=== PATIENT | male | born 1965 | race American Indian/Alaskan Native ===

== ENCOUNTER 2017-12-17 09:15 | Emergency (ER) | payer MEDICAID ==
[2017-12-17] MEDS ORDERED: KEPPRA 1,000 MG/NS 0.75% 100ML 1,000 MG/100 ML BAG IV ONE (10:13)
[2017-12-17 10:37] LABS: Hematocrit 44.2 % (35.5-45.6); Hemoglobin 14.4 gm/dl (11.8-15.2); Mean Corpuscular HGB Conc 33 % (32-34); Mean Corpuscular Hemoglobin 26 pg (28-32); Mean Corpuscular Volume 81 fl (84-94); Platelet Count 164 K/mm3 (140-440); Red Blood Count 5.45 M/mm3 (3.65-5.03); Red Cell Distribution Width 14.8 % (13.2-15.2)
[2017-12-17 10:51] LABS: BUN/Creatinine Ratio 18; Blood Urea Nitrogen 14 mg/dL (9-20); Calcium 9.1 mg/dL (8.4-10.2); Hemolysis Index 27
[2017-12-17 13:06] LABS: Bacteria,Urine 1+ /HPF (Negative); Bilirubin,Urine NEG (Negative); Blood,Urine NEG (Negative); Color,Urine Yellow (Yellow); Protein,Urine <15 mg/dL mg/dL (Negative); Urobilinogen,Urine < 2.0 mg/dL (<2.0)
--- NOTE | 2017-12-17 13:27 | Emergency Department Report ---
ED Seizure HPI - General Chief Complaint: Seizure Stated Complaint: SEIZURE Time Seen by Provider: 12/17/17 10:05 Source: EMS Mode of arrival: Stretcher Limitations: Physical Limitation - History of Present Illness Initial Comments: Patient is a 52-year-old male who has a past medical history seizures secondary to a traumatic brain injury 15 years ago who is presenting with a seizure. Patient's caregiver states that he may have had a seizure yesterday She Found Him He Seemed Confused However He Did Return Back to His Baseline Relatively Quickly. Caregiver States She Witnessed a Tonic-Clonic Seizure the Patient This Morning. Patient Is Alert Currently States He Has No Complaints Says He Feels Fine. Patient Has a Suprapubic Catheter in Place and Is on Keflex for Urinary Tract Infection. Patient Denies Any Fevers Nausea Vomiting Headache Chills Cough Abdominal Pain at This Time. MD Complaint: seizure - Related Data Home Medications Medication Instructions Recorded Confirmed Last Taken levETIRAcetam [Keppra TAB] 1,000 mg PO BID 12/17/17 12/17/17 Unknown Previous Rx's Medication Instructions Recorded Last Taken Type Ciprofloxacin HCl [Cipro] 500 mg PO BID #20 tablet 12/17/17 Unknown Rx Allergies Allergy/AdvReac Type Severity Reaction Status Date / Time No Known Allergies Allergy Unverified 12/17/17 09:43 ED Review of Systems ROS: Stated complaint: SEIZURE Other details as noted in HPI Comment: All other systems reviewed and negative ED Past Medical Hx - Past Medical History Previous Medical History?: Yes Hx Seizures: Yes Additional medical history: Traumatic Brain injury - Surgical History Past Surgical History?: Yes - Social History Smoking Status: Never Smoker Substance Use Type: None - Medications Home Medications: Home Medications Medication Instructions Recorded Confirmed Last Taken Type Ciprofloxacin HCl [Cipro] 500 mg PO BID #20 tablet 12/17/17 Unknown Rx levETIRAcetam [Keppra TAB] 1,000 mg PO BID 12/17/17 12/17/17 Unknown History ED Physical Exam - General Limitations: Physical Limitation General appearance: alert, in no apparent distress - Head Head exam: Present: atraumatic, normocephalic - Eye Eye exam: Present: normal appearance - ENT ENT exam: Present: mucous membranes moist - Neck Neck exam: Present: normal inspection - Respiratory Respiratory exam: Present: normal lung sounds bilaterally. Absent: respiratory distress - Cardiovascular Cardiovascular Exam: Present: regular rate, normal rhythm. Absent: systolic murmur, diastolic murmur, rubs, gallop - GI/Abdominal GI/Abdominal exam: Present: soft, normal bowel sounds - Rectal Rectal exam: Present: deferred - Extremities Exam Extremities exam: Present: normal inspection - Back Exam Back exam: Present: normal inspection - Neurological Exam Neurological exam: Present: alert, oriented X3 - Psychiatric Psychiatric exam: Present: normal affect, normal mood - Skin Skin exam: Present: warm, dry, intact, normal color. Absent: rash ED Course Vital Signs 12/17/17 12/17/17 12/17/17 09:28 09:30 09:34 Temperature 98.3 F Pulse Rate 102 H Respiratory Rate Blood Pressure 131/83 O2 Sat by Pulse 94 96 96 Oximetry 12/17/17 12/17/17 12/17/17 09:46 09:48 10:00 Temperature Pulse Rate 101 H 91 H Respiratory 13 16 12 Rate Blood Pressure 131/83 130/83 O2 Sat by Pulse 96 97 95 Oximetry 12/17/17 12/17/17 12/17/17 10:16 10:30 10:46 Temperature Pulse Rate 87 88 87 Respiratory 10 L 14 11 L Rate Blood Pressure 130/83 139/78 139/78 O2 Sat by Pulse 94 95 96 Oximetry 12/17/17 12/17/17 12/17/17 11:00 11:16 11:30 Temperature Pulse Rate 87 94 H 87 Respiratory 12 11 L 13 Rate Blood Pressure 133/80 139/78 130/78 O2 Sat by Pulse 95 97 97 Oximetry 12/17/17 11:46 Temperature Pulse Rate 86 Respiratory 9 L Rate Blood Pressure 130/78 O2 Sat by Pulse 97 Oximetry ED Medical Decision Making - Lab Data Result diagrams: 12/17/17 10:08 12/17/17 10:02 Lab Results 12/17/17 12/17/17 12/17/17 Range/Units 10:02 10:08 12:20 WBC 3.4 L (4.5-11.0) K/mm3 RBC 5.45 H (3.65-5.03) M/mm3 Hgb 14.4 (11.8-15.2) gm/dl Hct 44.2 (35.5-45.6) % MCV 81 L (84-94) fl MCH 26 L (28-32) pg MCHC 33 (32-34) % RDW 14.8 (13.2-15.2) % Plt Count 164 (140-440) K/mm3 Sodium 139 (137-145) mmol/L Potassium 3.7 (3.6-5.0) mmol/L Chloride 100.7 (98-107) mmol/L Carbon Dioxide 24 (22-30) mmol/L Anion Gap 18 mmol/L BUN 14 (9-20) mg/dL Creatinine 0.8 (0.8-1.5) mg/dL Estimated GFR > 60 ml/min BUN/Creatinine Ratio 18 % Glucose 93 (75-100) mg/dL Calcium 9.1 (8.4-10.2) mg/dL Urine Color Yellow (Yellow) Urine Turbidity Clear (Clear) Urine pH 9.0 H (5.0-7.0) Ur Specific [place] 1.010 (1.003-1.030) Urine Protein <15 mg/dl (Negative) mg/dL Urine Glucose (UA) Neg (Negative) mg/dL Urine Ketones Neg (Negative) mg/dL Urine Blood Neg (Negative) Urine Nitrite Neg (Negative) Urine Bilirubin Neg (Negative) Urine Urobilinogen < 2.0 (<2.0) mg/dL Ur Leukocyte Esterase Lg (Negative) Urine WBC (Auto) 24.0 H (0.0-6.0) /HPF Urine RBC (Auto) 2.0 (0.0-6.0) /HPF U Epithel Cells (Auto) < 1.0 (0-13.0) /HPF Urine Bacteria (Auto) 1+ (Negative) /HPF - Medical Decision Making Patient is a 52-year-old male who is status post seizure. Patient is on Keppra and Trileptal for seizures. Patient was loaded with Keppra and appears stable after monitoring. Patient also had a urinalysis checked which shows a continued urinary tract infection. Patient LIVES currently this will be switched to Cipro. Patient be discharged home to at this time Critical care attestation.: If time is entered above; I have spent that time in minutes in the direct care of this critically ill patient, excluding procedure time. ED Disposition Clinical Impression: Breakthrough seizure UTI (urinary tract infection) due to urinary indwelling catheter Qualifiers: Indwelling urinary catheter type: indwelling urethral catheter Encounter type: subsequent encounter Qualified Code(s): T83.511D - Infection and inflammatory reaction due to indwelling urethral catheter, subsequent encounter; N39.0 - Urinary tract infection, site not specified Disposition: DC-01 TO HOME OR SELFCARE Is pt being admited?: No Does the pt Need Aspirin: No Condition: Stable Instructions: Recurrent Seizures Adult (ED), How to Care for Your Suprapubic Catheter (ED), Urinary Tract Infection in Men (ED) Additional Instructions: Please continue the Keppra as prescribed. The antibiotic has been switched to Cipro which is stronger than Keflex. Prescriptions: Ciprofloxacin HCl [Cipro] 500 mg PO BID #20 tablet Referrals: PRIMARY CARE, [Primary Care Provider] - 3-5 Days
[2017-12-17 15:06] VITALS: BP 114/64
== END 2017-12-17 15:37 | disposition home or self-care (01) ==
LOC: ED 09:15
DX: G40.909 Epilepsy, unspecified, not intractable, without status epilepticus (principal); T83.511D Infection and inflammatory reaction due to indwelling urethral catheter, subsequent encounter; N39.0 Urinary tract infection, site not specified; Z87.820 Personal history of traumatic brain injury; Y84.6 Urinary catheterization as the cause of abnormal reaction of the patient, or of later complication, without mention of misadventure at the time of the procedure
CPT/HCPCS: 36415; 80048; 81001; 85027; 96374; 99284; J1953